=== PATIENT | female | born 1995 | race Caucasian/White ===

== ENCOUNTER 2017-12-09 15:20 | Emergency (ER) | payer MEDICAID ==
[~2017-12-09] VITALS: Ht 154.9 cm; Wt 54.4 kg
[~2017-12-09 15:20] MED LIST: ALBU0.63
[2017-12-09 16:12] VITALS: BP 102/62
== END 2017-12-09 17:13 | disposition home or self-care (01) ==
LOC: ER 15:24
DX: J20.9 Acute bronchitis, unspecified (principal); J45.909 Unspecified asthma, uncomplicated; Z87.442 Personal history of urinary calculi
CPT/HCPCS: 71046